=== PATIENT | female | born 1955 | race Two or more races ===

== ENCOUNTER 2021-10-30 09:20 | Inpatient (IN) | payer OTHER, MEDICAID ==
[~2021-10-30] VITALS: Ht 162.6 cm; Wt 45.2 kg
[2021-10-30] MEDS ORDERED: cefTRIAXone 1GM/50ML D5W 50 ML IV ONE (10:15)
[2021-10-30] MEDS ORDERED: SODIUM CHLORIDE 0.9% 1,000 ML IV ONE (10:30)
[2021-10-30 10:31] LABS: Basophils # (auto) 0.1 10 ^3/uL (0-0.2); Basophils % (auto) 0.6 % (0.0-2.0); Eosinophils # (auto) 0.2 10 ^3/uL (0-0.8); Hematocrit 28.2 % (36.0-46.0); Hemoglobin 8.9 g/dL (12.2-16.2); Lymphocytes # (auto) 1.1 10 ^3/uL (0.4-5.4); Lymphocytes % (auto) 6.4 % (10.0-50.0); Mean Corpuscular Hemoglobin 23.3 pg (28.0-32.0); Mean Corpuscular Hgb Conc. 31.6 g/dL (32.0-36.0); Mean Corpuscular Volume 73.8 fL (80.0-100.0); Monocytes # (auto) 0.7 10 ^3/uL (0-1.3); Monocytes % (auto) 4.2 % (0.0-12.0); Neutrophils # (auto) 14.8 10 ^3/uL (1.6-8.6); Neutrophils % (auto) 87.8 % (37.0-80.0); Nucleated Red Blood Cells % 0.1 %; Red Blood Cells 3.82 10^6/uL (4.0-5.20); Red Cell Distribution Width 24.1 % (11.8-14.3); White Blood Cell 16.9 10^3/uL (4.4-10.8)
[2021-10-30 10:46] LABS: Potassium 5.3 mmol/L (3.5-5.1)
[2021-10-30 10:55] LABS: Albumin 1.9 g/dL (3.4-5.0); BUN/Creatinine Ratio 27.8; Bilirubin, Total 1.2 mg/dL (0.2-1.0); Calcium 8.9 mg/dL (8.5-10.1); Total Protein 8.1 g/dL (6.4-8.2)
[2021-10-30 11:45] LABS: Urine Specific Gravity 1.25 (1.001-1.035)
[2021-10-30 11:46] LABS: Urine Blood Negative /uL (Negative)
[2021-10-30 14:10] LABS: Urine WBC >200 /hpf (0 - 5); Urine WBC Clumps Present /hpf (None Seen)
[2021-10-30 14:12] LABS: Urine Bacteria None Seen /hpf (None Seen)
[2021-10-30 14:13] LABS: Urine Budding Yeast MODERATE /hpf (None Seen)
[2021-10-30 18:47] LABS: Cholesterol 87 mg/dL (< 200)
[2021-10-30 18:50] LABS: HDL Cholesterol 31 mg/dL (40-59); LDL Cholesterol 47 mg/dL (< 100); Triglycerides 96 mg/dL (< 150)
[2021-10-30] MEDS ORDERED: ENOXAPARIN SOD 40 MG/0.4 ML SYRINGE SC ONE (19:30)
[2021-10-30] MEDS ORDERED: NTG 0.1MG/HR TOPICAL PATCH TD ONE (19:30)
[2021-10-31] MEDS ORDERED: LORazepam 2MG/ML-1ML VIAL IV ONE ×2 (00:15→14:35)
[2021-10-31 05:44] LABS: Basophils # (auto) 0.1 10 ^3/uL (0-0.2); Eosinophils # (auto) 0.2 10 ^3/uL (0-0.8); Eosinophils % (auto) 1.2 % (0.0-7.0); Hemoglobin 8.5 g/dL (12.2-16.2); Monocytes # (auto) 0.6 10 ^3/uL (0-1.3)
[2021-10-31 05:49] LABS: Basophils % (auto) 0.9 % (0.0-2.0); Hematocrit 26.8 % (36.0-46.0); Lymphocytes # (auto) 0.9 10 ^3/uL (0.4-5.4); Lymphocytes % (auto) 5.5 % (10.0-50.0); Mean Corpuscular Hemoglobin 23.7 pg (28.0-32.0); Mean Corpuscular Hgb Conc. 31.9 g/dL (32.0-36.0); Mean Corpuscular Volume 74.2 fL (80.0-100.0); Monocytes % (auto) 3.6 % (0.0-12.0); Neutrophils # (auto) 14.7 10 ^3/uL (1.6-8.6); Neutrophils % (auto) 88.8 % (37.0-80.0); Nucleated Red Blood Cells % 0.2 %; Red Blood Cells 3.61 10^6/uL (4.0-5.20); White Blood Cell 16.5 10^3/uL (4.4-10.8)
[2021-10-31 05:51] LABS: Red Cell Distribution Width 23.8 % (11.8-14.3)
[2021-10-31 06:04] LABS: Potassium 3.8 mmol/L (3.5-5.1)
[2021-10-31 06:12] LABS: Albumin 1.8 g/dL (3.4-5.0); BUN/Creatinine Ratio 36.9; Bilirubin, Total 0.8 mg/dL (0.2-1.0); Calcium 8.4 mg/dL (8.5-10.1); Total Protein 7.3 g/dL (6.4-8.2)
[2021-10-31] MEDS ORDERED: LORazepam 2MG/ML-1ML VIAL IV PRN (08:30)
[2021-10-31] MEDS: HALOPERIDOL LACTATE 5 MG/ML INJ VIAL IM PRN (08:40)
[2021-10-31 09:00] VITALS: BP 131/71
[2021-10-31] MEDS ORDERED: cefTRIAXone 1GM/50ML D5W 50 ML IV SCH (09:00)
[2021-10-31] MEDS ORDERED: FUROSEMIDE 20 MG/2 ML VIAL IV ONE (10:30)
[2021-10-31 10:31] VITALS: BP 144/80
[2021-10-31] MEDS ORDERED: CARVEDILOL 3.125 MG TAB GT ONE (12:15)
[2021-10-31] MEDS ORDERED: LISINOPRIL 5 MG TAB GT ONE (12:15)
[2021-10-31] MEDS ORDERED: Glucerna 1.2 Cal 1Liter BOTTLE GT SCH (12:15)
[2021-10-31 12:24] LABS: Free T4 (Free Thyroxine) 1.23 ng/dL (0.89-1.76)
[2021-10-31 12:25] LABS: Folate (Folic Acid) > 24.00 ng/mL (5.38-24)
[2021-10-31] MEDS ORDERED: HALOPERIDOL LACTATE 5 MG/ML INJ VIAL IM PRN (13:15)
[2021-10-31 13:17] VITALS: BP 144/80
[2021-10-31] MEDS: PANTOPRAZOLE 40 MG/10 ML VIAL INJ IV SCH ×2 (14:51→21:41)
[2021-10-31] MEDS: PIPERACILLIN-TAZOB 3.375GM 100 ML IV SCH ×2 (14:52→21:41)
[2021-10-31 17:00] VITALS: BP 115/58
[2021-10-31] MEDS: FUROSEMIDE 20 MG/2 ML VIAL IV SCH (18:34)
[2021-10-31] MEDS: CARVEDILOL 3.125 MG TAB GT SCH (22:00)
[2021-11-01] MEDS: HALOPERIDOL LACTATE 5 MG/ML INJ VIAL IM PRN (05:21)
[2021-11-01] MEDS: FUROSEMIDE 20 MG/2 ML VIAL IV SCH ×2 (05:37→18:00)
[2021-11-01] MEDS: PIPERACILLIN-TAZOB 3.375GM 100 ML IV SCH ×2 (05:38→17:34)
[2021-11-01 07:41] LABS: Eosinophils # (auto) 0.4 10 ^3/uL (0-0.8); Hemoglobin 7.8 g/dL (12.2-16.2); Lymphocytes # (auto) 0.4 10 ^3/uL (0.4-5.4); Monocytes # (auto) 0.5 10 ^3/uL (0-1.3); Neutrophils # (auto) 13.8 10 ^3/uL (1.6-8.6); White Blood Cell 15.3 10^3/uL (4.4-10.8)
[2021-11-01 07:43] LABS: Basophils # (auto) 0.2 10 ^3/uL (0-0.2); Basophils % (auto) 1.3 % (0.0-2.0); Eosinophils % (auto) 2.5 % (0.0-7.0); Hematocrit 25.4 % (36.0-46.0); Lymphocytes % (auto) 2.9 % (10.0-50.0); Mean Corpuscular Hemoglobin 22.9 pg (28.0-32.0); Mean Corpuscular Hgb Conc. 30.7 g/dL (32.0-36.0); Mean Corpuscular Volume 74.7 fL (80.0-100.0); Monocytes % (auto) 3.2 % (0.0-12.0); Neutrophils % (auto) 90.1 % (37.0-80.0); Nucleated Red Blood Cells % 0.1 %; Red Blood Cells 3.39 10^6/uL (4.0-5.20); Red Cell Distribution Width 24.3 % (11.8-14.3)
[2021-11-01 07:53] LABS: BUN/Creatinine Ratio 33.7; Calcium 8.1 mg/dL (8.5-10.1); Magnesium 2.1 mg/dL (1.6-2.6); Potassium 3.4 mmol/L (3.5-5.1)
[2021-11-01 08:00] VITALS: BP 102/77
[2021-11-01] MEDS ORDERED: DAPAGLIFLOZIN 5 MG TAB GT SCH (10:00)
[2021-11-01] MEDS ORDERED: LISINOPRIL 5 MG TAB GT SCH (10:00)
[2021-11-01 12:00] VITALS: BP 97/41
[2021-11-01] MEDS: CARVEDILOL 3.125 MG TAB GT SCH (13:07)
[2021-11-01] MEDS: PANTOPRAZOLE 40 MG/10 ML VIAL INJ IV SCH (13:08)
[2021-11-01] MEDS ORDERED: FLUCONAZOLE 200MG/100ML 100 ML IV ONE (14:45)
[2021-11-01] MEDS ORDERED: DILT60TA PO (15:22)
[2021-11-01] MEDS ORDERED: LACT10SO3 PO (15:22)
[2021-11-01] MEDS ORDERED: ATOR80TA PO (15:22)
[2021-11-01] MEDS ORDERED: QUET1TAB11 PO (15:22)
[2021-11-01 16:00] VITALS: BP 96/47
[2021-11-01] MEDS ORDERED: POTASSIUM EFFERVESENT TAB 25 MEQ GT ONE (17:00)
== END 2021-11-01 21:20 | disposition hospice, home (50) | DRG 871 ==
LOC: EDBD 09:20 → ER 09:20 → OVERFLOW 17:53 → CENTRAL 10-31 08:35
PROVIDERS: ADMIT Registered Nurse; ATTEND Internal Medicine
DX: A41.9 Sepsis, unspecified organism (principal); G93.41 Metabolic encephalopathy; J96.01 Acute respiratory failure with hypoxia; J69.0 Pneumonitis due to inhalation of food and vomit; I21.4 Non-ST elevation (NSTEMI) myocardial infarction; I50.23 Acute on chronic systolic (congestive) heart failure; G93.1 Anoxic brain damage, not elsewhere classified; N30.00 Acute cystitis without hematuria; I69.354 Hemiplegia and hemiparesis following cerebral infarction affecting left non-dominant side; I11.0 Hypertensive heart disease with heart failure; D63.8 Anemia in other chronic diseases classified elsewhere; E11.9 Type 2 diabetes mellitus without complications; E78.5 Hyperlipidemia, unspecified; E88.09 Other disorders of plasma-protein metabolism, not elsewhere classified; Z20.822 Contact with and (suspected) exposure to COVID-19; H53.462 Homonymous bilateral field defects, left side; K76.0 Fatty (change of) liver, not elsewhere classified; Z93.1 Gastrostomy status
CPT/HCPCS: 36415; 70450; 70551; 71045; 71250; 80048; 80053; 80061; 81001; 82607; 82746; 83036; 83605; 83735; 83880; 84439; 84443; 84484; 85025; 87040; 87077; 87086; 87186; 93005; 93306; 93886; 96365; 99291; C9113; G0378; J0696; J1450; J2543

== ENCOUNTER 2021-11-07 09:00 | Inpatient (IN) | payer OTHER, MEDICAID ==
[~2021-11-07] VITALS: Ht 157.5 cm; Wt 58.7 kg
[~2021-11-07 09:00] MED LIST: ATOR80TA PO; DILT60TA PO; LACT10SO3 PO; QUET1TAB11 PO
[2021-11-07] MEDS ORDERED: cefTRIAXone 1GM/50ML D5W 50 ML IV ONE (09:30)
[2021-11-07] MEDS ORDERED: SODIUM CHLORIDE 0.9% 1,000 ML IV ONE (09:30)
[2021-11-07] MEDS ORDERED: SODIUM CHLORIDE 0.9% 1,000 ML IVB ONE (09:30)
[2021-11-07] MEDS ORDERED: metroNIDAZOLE 500MG/100ML 100 ML IV ONE (09:30)
[2021-11-07 10:12] LABS: Eosinophils # (auto) 0 10 ^3/uL (0-0.8)
[2021-11-07 10:16] LABS: Basophils # (auto) 0.1 10 ^3/uL (0-0.2); Basophils % (auto) 0.6 % (0.0-2.0); Lymphocytes # (auto) 0.9 10 ^3/uL (0.4-5.4); Lymphocytes % (auto) 6.3 % (10.0-50.0); Mean Corpuscular Hgb Conc. 29.1 g/dL (32.0-36.0); Monocytes % (auto) 6.7 % (0.0-12.0); Neutrophils # (auto) 12.2 10 ^3/uL (1.6-8.6); Neutrophils % (auto) 86.4 % (37.0-80.0); Nucleated Red Blood Cells % 0.6 %; Red Blood Cells 3.32 10^6/uL (4.0-5.20); White Blood Cell 14.2 10^3/uL (4.4-10.8)
[2021-11-07 10:25] LABS: Urine Bacteria FEW /hpf (None Seen); Urine Blood Negative /uL (Negative); Urine Budding Yeast LOADED /hpf (None Seen); Urine Specific Gravity 1.015 (1.001-1.035); Urine WBC 16 /hpf (0 - 5)
[2021-11-07 10:28] LABS: Lactic Acid w/Reflex 3.8 mmol/L (0.4-2.0)
[2021-11-07 10:34] LABS: Hematocrit 26.1 % (36.0-46.0); Mean Corpuscular Hemoglobin 22.9 pg (28.0-32.0); Mean Corpuscular Volume 78.6 fL (80.0-100.0); Red Cell Distribution Width 24.5 % (11.8-14.3)
[2021-11-07 10:35] LABS: Hemoglobin 7.6 g/dL (12.2-16.2)
[2021-11-07 11:08] LABS: Alanine Aminotransferase 27 U/L (13-56); Albumin 1.7 g/dL (3.4-5.0); Anion Gap 10 (5-15); Aspartate Aminotransferase 34 U/L (15-37); Blood Alcohol < 3.0 mg/dL (0-5); Calcium 8.4 mg/dL (8.5-10.1); Carbon Dioxide 32 mmol/L (21-32); Chloride 106 mmol/L (98-107); Potassium 4.3 mmol/L (3.5-5.1); Sodium 148 mmol/L (136-145)
[2021-11-07 11:11] LABS: INR 1.24 (0.9-1.15); Partial Thromboplastin Time 23.7 sec (23.6-33.0)
[2021-11-07 11:17] LABS: Alkaline Phosphatase 113 U/L (45-117); BUN/Creatinine Ratio 39.4; Bilirubin, Total 0.4 mg/dL (0.2-1.0); GFR African American 25 mL/min; GFR Non-African American 21 mL/min; Total Protein 7.5 g/dL (6.4-8.2)
[2021-11-07 11:34] LABS: Blood Urea Nitrogen 97 mg/dL (7-18); Glucose 755 mg/dL (74-106)
[2021-11-07] MEDS ORDERED: DEXTROSE (50%) 50ML SYRG IV PRN (12:30)
[2021-11-07] MEDS ORDERED: INSULIN LANTUS (GLARGINE) 1 /0.01ml (100units/ml) SC ONE (12:30)
[2021-11-07] MEDS ORDERED: ENOXAPARIN SOD 60 MG/0.6 ML SYRINGE SC ONE (12:45)
[2021-11-07] MEDS ORDERED: LACTATED RINGER'S 1,000 ML IV ONE (13:00)
[2021-11-07] MEDS ORDERED: NITROGLYCERIN 0.4 MG SL TAB SL PRN (13:00)
[2021-11-07] MEDS ORDERED: MORPHINE SULFATE INJ 2 MG/ml SYRG IV PRN (13:00)
[2021-11-07] MEDS: InsuLIN R (HUMAN) 100 UNITS in SODIUM CHL 0.9% 99 ML IV SCH ×2 (13:53→15:42)
[2021-11-07] MEDS: ACCU-CHEK COMFORT CURVE STRIP VI SCH ×7 (14:00→23:35)
[2021-11-07 14:22] LABS: Albumin 1.7 g/dL (3.4-5.0); Calcium 7.9 mg/dL (8.5-10.1); Potassium 3.8 mmol/L (3.5-5.1)
[2021-11-07 14:30] LABS: BUN/Creatinine Ratio 41.7; Bilirubin, Total 0.3 mg/dL (0.2-1.0)
[2021-11-07] MEDS ORDERED: SOD CHL 0.45% 1,000 ML IV SCH (14:45)
[2021-11-07] MEDS ORDERED: SODIUM CHLORIDE 0.9% 2,000 ML IV ONE (15:15)
[2021-11-07] MEDS ORDERED: ONDANSETRON HCL 4 MG/2 ML VIAL IV PRN (15:45)
[2021-11-07] MEDS ORDERED: ACETAMINOPHEN 325 MG TAB PO PRN (15:45)
[2021-11-07] MEDS: NOREPINEPHRINE 8 MG/250ML KIT 250 ML IV SCH (15:45)
[2021-11-07] MEDS ORDERED: LACTULOSE 20Gm/30ML SOLN PO PRN (15:45)
[2021-11-07] MEDS ORDERED: VANCOMYCIN PER PHARMACY 1,000 MG IV SCH (15:45)
[2021-11-07] MEDS ORDERED: DOCUSATE SOD 100 MG CAP PO PRN (15:45)
[2021-11-07] MEDS ORDERED: hydrALAZINE HCL 20 MG/ML VL IV PRN (15:45)
[2021-11-07] MEDS ORDERED: PANTOPRAZOLE 40 MG/10 ML VIAL INJ IV ONE (15:45)
[2021-11-07] MEDS ORDERED: LORazepam 0.5 MG TAB PO PRN (15:45)
[2021-11-07] MEDS ORDERED: SODIUM CHLORIDE 0.9% 1,000 ML IV SCH (16:00)
[2021-11-07] MEDS ORDERED: HYDROcodone-ACET 5/325MG TAB PO PRN (16:15)
[2021-11-07 16:37] LABS: Magnesium 1.1 mg/dL (1.6-2.6); Phosphorus 1.6 mg/dL (2.5-4.90)
[2021-11-07] MEDS ORDERED: VANCOMYCIN 1GM/250ML 250 ML IV ONE (17:00)
[2021-11-07] MEDS: MORPHINE SULFATE INJ 2 MG/ml SYRG IV PRN (17:57)
[2021-11-07] MEDS ORDERED: BUMETANIDE 2.5mg/10ml (0.25 mg/ml) INJ IV SCH (18:00)
[2021-11-07 19:02] LABS: INR 1.76 (0.9-1.15); Partial Thromboplastin Time 47.2 sec (23.6-33.0)
[2021-11-07] MEDS ORDERED: POTASSIUM PHOSPHATE 44 MEQ in D5W 5% 250 ML IV ONE (20:00)
[2021-11-07 20:51] LABS: BUN/Creatinine Ratio 39.1
[2021-11-07 20:53] LABS: Potassium 2.9 mmol/L (3.5-5.1)
[2021-11-07] MEDS: SOD CHL 0.45% 1,000 ML IV SCH (21:09)
[2021-11-07] MEDS: CARVEDILOL 3.125 MG TAB PO SCH (22:00)
[2021-11-07] MEDS: ATORVASTATIN 20 MG TAB PO SCH (22:00)
[2021-11-07] MEDS ORDERED: ATORVASTATIN 20 MG TAB PO SCH (22:00)
[2021-11-07 23:43] LABS: BUN/Creatinine Ratio 40.7; Calcium 7.6 mg/dL (8.5-10.1); Potassium 3.2 mmol/L (3.5-5.1)
[2021-11-08] MEDS: PIPERACILLIN-TAZOB 2.25GM 50 ML IV SCH ×3 (00:04→14:00)
[2021-11-08] MEDS: ACCU-CHEK COMFORT CURVE STRIP VI SCH ×16 (01:06→22:30)
[2021-11-08] MEDS: SOD CHL 0.45% 1,000 ML IV SCH ×2 (05:13→12:23)
[2021-11-08 08:29] LABS: Basophils # (auto) 0.1 10 ^3/uL (0-0.2); Basophils % (auto) 0.5 % (0.0-2.0); Eosinophils # (auto) 0.3 10 ^3/uL (0-0.8); Eosinophils % (auto) 1.9 % (0.0-7.0); White Blood Cell 15.3 10^3/uL (4.4-10.8)
[2021-11-08 08:30] LABS: Hematocrit 26.1 % (36.0-46.0); Lymphocytes # (auto) 1.3 10 ^3/uL (0.4-5.4); Lymphocytes % (auto) 8.4 % (10.0-50.0); Mean Corpuscular Hgb Conc. 29.8 g/dL (32.0-36.0); Monocytes # (auto) 0.5 10 ^3/uL (0-1.3); Monocytes % (auto) 3.1 % (0.0-12.0); Neutrophils # (auto) 13.2 10 ^3/uL (1.6-8.6); Neutrophils % (auto) 86.1 % (37.0-80.0); Red Blood Cells 3.36 10^6/uL (4.0-5.20)
[2021-11-08 08:39] LABS: Albumin 1.7 g/dL (3.4-5.0); Calcium 7.6 mg/dL (8.5-10.1); Magnesium 2.4 mg/dL (1.6-2.6); Potassium 3.6 mmol/L (3.5-5.1); Uric Acid 8.9 mg/dL (2.6-6.0)
[2021-11-08 08:48] LABS: BUN/Creatinine Ratio 41.9; Bilirubin, Total 0.4 mg/dL (0.2-1.0); CRP High Sensitivity 1.5 mg/dL (< 0.3); Total Protein 6.9 g/dL (6.4-8.2)
[2021-11-08 08:49] LABS: Thyroid Stimulating Hormone 2.47 uIU/mL (0.358-3.74)
[2021-11-08 09:00] LABS: INR 1.19 (0.9-1.15); Partial Thromboplastin Time 29.6 sec (23.6-33.0)
[2021-11-08 09:11] LABS: Hemoglobin 7.8 g/dL (12.2-16.2); Mean Corpuscular Hemoglobin 23.1 pg (28.0-32.0); Mean Corpuscular Volume 77.7 fL (80.0-100.0)
[2021-11-08 09:12] LABS: Red Cell Distribution Width 23.5 % (11.8-14.3)
[2021-11-08] MEDS: CARVEDILOL 3.125 MG TAB PO SCH ×2 (09:49→22:00)
[2021-11-08] MEDS: ASPirin 81 mg TAB PO SCH (09:51)
[2021-11-08] MEDS ORDERED: BENAZEPRIL HCL 10 MG TAB PO SCH (10:00)
[2021-11-08] MEDS: PANTOPRAZOLE 40 MG/10 ML VIAL INJ IV SCH (10:21)
[2021-11-08] MEDS: INSULIN LANTUS (GLARGINE) 1 /0.01ml (100units/ml) SC SCH (10:21)
[2021-11-08] MEDS: InsuLIN R (HUMAN) 100 UNITS in SODIUM CHL 0.9% 99 ML IV SCH (12:30)
[2021-11-08 14:18] LABS: BUN/Creatinine Ratio 43.4; Calcium 7.8 mg/dL (8.5-10.1)
[2021-11-08 14:23] LABS: BUN/Creatinine Ratio 41.2; Calcium 7.7 mg/dL (8.5-10.1)
[2021-11-08] MEDS: NOREPINEPHRINE 8 MG/250ML KIT 250 ML IV SCH (15:45)
[2021-11-08] MEDS ORDERED: VANCOMYCIN 1GM/250ML 250 ML IV ONE (18:00)
[2021-11-08] MEDS ORDERED: PIPERACILLIN-TAZOB 2.25GM 50 ML IV SCH (20:00)
[2021-11-08 20:25] LABS: BUN/Creatinine Ratio 41.8; Calcium 7.4 mg/dL (8.5-10.1); Potassium 3.8 mmol/L (3.5-5.1)
[2021-11-08] MEDS: ATORVASTATIN 20 MG TAB PO SCH (22:00)
[2021-11-09] MEDS: SOD CHL 0.45% 1,000 ML IV SCH (00:42)
[2021-11-09] MEDS: ACCU-CHEK COMFORT CURVE STRIP VI SCH ×9 (00:54→18:34)
[2021-11-09 06:13] LABS: BUN/Creatinine Ratio 34.3; Calcium 7.8 mg/dL (8.5-10.1); Potassium 3.6 mmol/L (3.5-5.1)
[2021-11-09] MEDS: D5W/SOD CHL 0.45% 1,000 ML IV SCH (07:53)
[2021-11-09] MEDS: MORPHINE SULFATE INJ 2 MG/ml SYRG IV PRN (08:09)
[2021-11-09] MEDS: PANTOPRAZOLE 40 MG/10 ML VIAL INJ IV SCH (09:21)
[2021-11-09] MEDS: cefTRIAXone 1GM/50ML D5W 50 ML IV SCH (09:23)
[2021-11-09] MEDS: CARVEDILOL 3.125 MG TAB PO SCH ×2 (09:25→22:00)
[2021-11-09] MEDS: ASPirin 81 mg TAB PO SCH (09:25)
[2021-11-09] MEDS: INSULIN LANTUS (GLARGINE) 1 /0.01ml (100units/ml) SC SCH (10:00)
[2021-11-09] MEDS ORDERED: FLUCONAZOLE 200MG/100ML 100 ML IV ONE (16:00)
[2021-11-09 17:00] VITALS: BP 94/38
[2021-11-09 22:00] VITALS: BP 98/47
[2021-11-09] MEDS: ATORVASTATIN 20 MG TAB PO SCH (22:00)
[2021-11-10] MEDS: LORazepam 2MG/ML-1ML VIAL IV PRN ×2 (01:07→17:27)
[2021-11-10 05:00] VITALS: BP 104/66
[2021-11-10] MEDS: ACCU-CHEK COMFORT CURVE STRIP VI SCH ×5 (05:53→22:05)
[2021-11-10 06:58] LABS: BUN/Creatinine Ratio 30.2; Calcium 7.7 mg/dL (8.5-10.1); Potassium 3.8 mmol/L (3.5-5.1)
[2021-11-10 07:58] LABS: Lymphocytes # (auto) 0.9 10 ^3/uL (0.4-5.4); Mean Corpuscular Hemoglobin 23.6 pg (28.0-32.0); Monocytes # (auto) 0.7 10 ^3/uL (0-1.3); White Blood Cell 10.9 10^3/uL (4.4-10.8)
[2021-11-10 08:00] VITALS: BP 107/65
[2021-11-10 08:00] LABS: Basophils # (auto) 0.1 10 ^3/uL (0-0.2); Basophils % (auto) 0.5 % (0.0-2.0); Eosinophils # (auto) 0.3 10 ^3/uL (0-0.8); Eosinophils % (auto) 2.4 % (0.0-7.0); Hematocrit 22.3 % (36.0-46.0); Lymphocytes % (auto) 8.2 % (10.0-50.0); Mean Corpuscular Hgb Conc. 30.9 g/dL (32.0-36.0); Mean Corpuscular Volume 76.2 fL (80.0-100.0); Monocytes % (auto) 6.8 % (0.0-12.0); Neutrophils # (auto) 8.9 10 ^3/uL (1.6-8.6); Neutrophils % (auto) 82.1 % (37.0-80.0); Nucleated Red Blood Cells % 0.4 %; Red Blood Cells 2.93 10^6/uL (4.0-5.20); Red Cell Distribution Width 23.4 % (11.8-14.3)
[2021-11-10 08:15] LABS: Hemoglobin 6.9 g/dL (12.2-16.2)
[2021-11-10 09:00] VITALS: BP 107/65
[2021-11-10] MEDS: CARVEDILOL 3.125 MG TAB PO SCH ×2 (10:00→22:00)
[2021-11-10] MEDS: ASPirin 81 mg TAB PO SCH (10:00)
[2021-11-10] MEDS ORDERED: DOCUSATE ORAL LIQUID 100 MG/10 ML UD PO PRN (10:15)
[2021-11-10 10:21] LABS: Hemoglobin 7.8 g/dL (12.2-16.2)
[2021-11-10 10:26] LABS: Hematocrit 26.2 % (36.0-46.0)
[2021-11-10] MEDS ORDERED: ACETAMINOPHEN 650 mg PER 20.3 mL UD PO PRN (10:30)
[2021-11-10] MEDS: cefTRIAXone 1GM/50ML D5W 50 ML IV SCH (11:20)
[2021-11-10] MEDS: FLUCONAZOLE 200MG/100ML 100 ML IV SCH (11:20)
[2021-11-10] MEDS: PANTOPRAZOLE 40 MG/10 ML VIAL INJ IV SCH (11:21)
[2021-11-10] MEDS: INSULIN LANTUS (GLARGINE) 1 /0.01ml (100units/ml) SC SCH (11:25)
[2021-11-10 14:00] VITALS: BP 110/61
[2021-11-10] MEDS: D5W/SOD CHL 0.45% 1,000 ML IV SCH ×2 (14:33→22:04)
[2021-11-10 17:00] VITALS: BP 95/57
[2021-11-10] MEDS: ATORVASTATIN 20 MG TAB PO SCH (22:00)
[2021-11-10 23:51] VITALS: BP 134/76
[2021-11-11] MEDS: LORazepam 2MG/ML-1ML VIAL IV PRN (02:28)
[2021-11-11 05:13] VITALS: BP 118/63
[2021-11-11] MEDS: ACCU-CHEK COMFORT CURVE STRIP VI SCH ×3 (06:13→17:04)
[2021-11-11] MEDS: D5W/SOD CHL 0.45% 1,000 ML IV SCH ×2 (06:13→09:30)
[2021-11-11 08:00] VITALS: BP 107/65
[2021-11-11] MEDS: CARVEDILOL 3.125 MG TAB PO SCH ×2 (08:00→10:00)
[2021-11-11] MEDS: cefTRIAXone 1GM/50ML D5W 50 ML IV SCH (08:50)
[2021-11-11 09:00] VITALS: BP 127/59
[2021-11-11 09:05] LABS: Calcium 6.9 mg/dL (8.5-10.1)
[2021-11-11 09:14] LABS: BUN/Creatinine Ratio 17.8
[2021-11-11 09:17] LABS: Potassium 2.9 mmol/L (3.5-5.1)
[2021-11-11] MEDS ORDERED: INSULIN LISPRO (HUMAN) 100 UNITS/ML ML SC ONE (09:45)
[2021-11-11] MEDS ORDERED: POTASSIUM EFFERVESENT TAB 25 MEQ GT ONE ×2 (09:45→12:20)
[2021-11-11] MEDS: FLUCONAZOLE 200MG/100ML 100 ML IV SCH (10:00)
[2021-11-11] MEDS: ASPirin 81 mg TAB PO SCH (10:00)
[2021-11-11] MEDS: INSULIN LANTUS (GLARGINE) 1 /0.01ml (100units/ml) SC SCH (10:00)
[2021-11-11] MEDS: PANTOPRAZOLE 40 MG/10 ML VIAL INJ IV SCH (10:53)
[2021-11-11 13:00] VITALS: BP 136/75
[2021-11-11 15:18] LABS: Calcium 8.4 mg/dL (8.5-10.1); Potassium 3.5 mmol/L (3.5-5.1)
[2021-11-11 16:19] VITALS: BP 117/50
[2021-11-11 17:00] VITALS: BP 117/50
== END 2021-11-11 18:15 | disposition hospice, home (50) | DRG 871 ==
LOC: ER 09:00 → EDBD 09:00 → TELE 13:00 → TELE-EAST 11-09 15:30
PROVIDERS: ADMIT Hospitalist; ATTEND Internal Medicine
DX: A41.9 Sepsis, unspecified organism (principal); E11.10 Type 2 diabetes mellitus with ketoacidosis without coma; E11.00 Type 2 diabetes mellitus with hyperosmolarity without nonketotic hyperglycemic-hyperosmolar coma (NKHHC); G93.41 Metabolic encephalopathy; I21.A1 Myocardial infarction type 2; I50.43 Acute on chronic combined systolic (congestive) and diastolic (congestive) heart failure; N17.0 Acute kidney failure with tubular necrosis; E87.0 Hyperosmolality and hypernatremia; N39.0 Urinary tract infection, site not specified; E87.1 Hypo-osmolality and hyponatremia; I69.354 Hemiplegia and hemiparesis following cerebral infarction affecting left non-dominant side; E44.0 Moderate protein-calorie malnutrition; Z20.822 Contact with and (suspected) exposure to COVID-19; D64.9 Anemia, unspecified; H53.462 Homonymous bilateral field defects, left side; I27.21 Secondary pulmonary arterial hypertension; K21.9 Gastro-esophageal reflux disease without esophagitis; K29.70 Gastritis, unspecified, without bleeding; I11.0 Hypertensive heart disease with heart failure; E11.40 Type 2 diabetes mellitus with diabetic neuropathy, unspecified; K59.04 Chronic idiopathic constipation; L89.90 Pressure ulcer of unspecified site, unspecified stage; Z93.1 Gastrostomy status; Z51.5 Encounter for palliative care; Z74.01 Bed confinement status; Z68.20 Body mass index [BMI] 20.0-20.9, adult; Z79.4 Long term (current) use of insulin
CPT/HCPCS: 36415; 36600; 70450; 71045; 71250; 74176; 80048; 80053; 80061; 80202; 80320; 81001; 82010; 82728; 82805; 82962; 83605; 83615; 83690; 83735; 83880; 83930; 83935; 83970; 84100; 84295; 84443; 84484; 84550; 85014; 85018; 85025; 85379; 85610; 85652; 85730; 86141; 86850; 86900; 86901; 87040; 87086; 87088; 87186; 92610; 93005; 93886; 93970; 96365; 96368; 96372; 99291; C9113; G0378; J0696; J1450; J1815; J2405; J2543; J3490; J7060

== ENCOUNTER 2021-11-17 05:55 | Inpatient (IN) | payer OTHER, MEDICAID ==
[~2021-11-17] VITALS: Ht 167.6 cm; Wt 51.7 kg
[2021-11-17] MEDS ORDERED: CEFEPIME 1GM/ 50ML 50 ML IV ONE ×2 (08:30→13:30)
[2021-11-17] MEDS ORDERED: VANCOMYCIN 1GM/250ML 250 ML IV ONE (08:30)
[2021-11-17] MEDS ORDERED: SODIUM CHLORIDE 0.9% 2,000 ML IV ONE (08:45)
[2021-11-17 09:06] LABS: Eosinophils # (auto) 0.1 10 ^3/uL (0-0.8); Red Blood Cells 2.58 10^6/uL (4.0-5.20); White Blood Cell 17.6 10^3/uL (4.4-10.8)
[2021-11-17 09:07] LABS: Basophils # (auto) 0.3 10 ^3/uL (0-0.2); Basophils % (auto) 1.9 % (0.0-2.0); Eosinophils % (auto) 0.5 % (0.0-7.0); Hematocrit 19.5 % (36.0-46.0); Lymphocytes # (auto) 0.7 10 ^3/uL (0.4-5.4); Lymphocytes % (auto) 3.9 % (10.0-50.0); Mean Corpuscular Hemoglobin 22.5 pg (28.0-32.0); Mean Corpuscular Hgb Conc. 29.7 g/dL (32.0-36.0); Mean Corpuscular Volume 75.7 fL (80.0-100.0); Monocytes % (auto) 5.8 % (0.0-12.0); Neutrophils # (auto) 15.5 10 ^3/uL (1.6-8.6); Neutrophils % (auto) 87.9 % (37.0-80.0); Nucleated Red Blood Cells % 0.3 %
[2021-11-17 09:36] LABS: Red Cell Distribution Width 23.9 % (11.8-14.3)
[2021-11-17 09:39] LABS: Hemoglobin 5.8 g/dL (12.2-16.2)
[2021-11-17 09:41] LABS: Magnesium 1.9 mg/dL (1.6-2.6); Potassium 5.2 mmol/L (3.5-5.1)
[2021-11-17 09:44] LABS: Lactic Acid w/Reflex 8.5 mmol/L (0.4-2.0)
[2021-11-17 09:46] LABS: BUN/Creatinine Ratio 32.6; Bilirubin, Total 0.5 mg/dL (0.2-1.0); Calcium 7.3 mg/dL (8.5-10.1)
[2021-11-17] MEDS ORDERED: PANTOPRAZOLE 40mg/50ML NS AE 50 ML IV ONE (10:00)
[2021-11-17] MEDS ORDERED: PANTOPRAZOLE 40 MG/10 ML VIAL INJ IV ONE (10:00)
[2021-11-17] MEDS ORDERED: ONDANSETRON HCL 4 MG/2 ML VIAL IV ONE (10:00)
[2021-11-17] MEDS ORDERED: IOHEXOL 350 MG/ML 100ML IJ ONE (10:23)
[2021-11-17 11:10] LABS: INR 1.28 (0.9-1.15); Partial Thromboplastin Time 23.4 sec (23.6-33.0)
[2021-11-17 15:40] VITALS: BP 117/56
[2021-11-17 15:45] VITALS: BP 128/56
[2021-11-17 16:00] VITALS: BP 121/54
[2021-11-17 17:30] VITALS: BP 148/57
[2021-11-17 18:10] VITALS: BP 147/54
[2021-11-17] MEDS: PANTOPRAZOLE 40 MG/10 ML VIAL INJ IV SCH (21:10)
[2021-11-17] MEDS ORDERED: ACETAMINOPHEN 325 MG TAB PO PRN (23:15)
[2021-11-17] MEDS ORDERED: DOCUSATE SOD 100 MG CAP PO PRN (23:15)
[2021-11-17] MEDS ORDERED: ONDANSETRON HCL 4 MG/2 ML VIAL IV PRN (23:15)
[2021-11-17] MEDS ORDERED: DEXTROSE (50%) 50ML SYRG IV PRN (23:15)
[2021-11-17] MEDS ORDERED: HYDROcodone-ACET 5/325MG TAB PO PRN (23:15)
[2021-11-17] MEDS ORDERED: VANCOMYCIN PER PHARMACY 0 MG IV SCH (23:15)
[2021-11-17] MEDS ORDERED: cefTRIAXone 1GM/50ML D5W 50 ML IV SCH (23:28)
[2021-11-17] MEDS: AZITHROMYCIN 500MG/ 250ML 250 ML IV SCH (23:47)
[2021-11-17] MEDS: InsuLIN REG 1unit/0.01ml Soln (100units/ml) SC SCH (23:48)
[2021-11-18] MEDS ORDERED: NITROGLYCERIN 0.4 MG SL TAB SL PRN
[2021-11-18] MEDS ORDERED: MORPHINE SULFATE INJ 2 MG/ml SYRG IV PRN
[2021-11-18] MEDS ORDERED: DEXTROSE (50%) 50ML SYRG IV PRN
[2021-11-18] MEDS: ACCU-CHEK COMFORT CURVE STRIP VI SCH ×6 (00:02→20:00)
[2021-11-18] MEDS: InsuLIN REG 1unit/0.01ml Soln (100units/ml) SC SCH ×5 (04:06→20:00)
[2021-11-18] MEDS ORDERED: LACTULOSE 10g/15ml SOLN 473ML PR SCH (06:00)
[2021-11-18] MEDS ORDERED: ACCU-CHEK COMFORT CURVE STRIP VI SCH (07:00)
[2021-11-18] MEDS ORDERED: InsuLIN REG 1unit/0.01ml Soln (100units/ml) SC SCH (07:00)
[2021-11-18] MEDS ORDERED: LACTULOSE 20Gm/30ML SOLN PO PRN (07:15)
[2021-11-18 07:36] LABS: Basophils # (auto) 0.2 10 ^3/uL (0-0.2); Basophils % (auto) 0.6 % (0.0-2.0); Eosinophils # (auto) 0 10 ^3/uL (0-0.8); Nucleated Red Blood Cells % 0.1 %
[2021-11-18 07:39] LABS: Eosinophils % (auto) 0.1 % (0.0-7.0); Hematocrit 28.2 % (36.0-46.0); Hemoglobin 9.5 g/dL (12.2-16.2); Lymphocytes # (auto) 0.7 10 ^3/uL (0.4-5.4); Lymphocytes % (auto) 2.6 % (10.0-50.0); Mean Corpuscular Hemoglobin 27.5 pg (28.0-32.0); Mean Corpuscular Hgb Conc. 33.8 g/dL (32.0-36.0); Mean Corpuscular Volume 81.4 fL (80.0-100.0); Monocytes # (auto) 1.6 10 ^3/uL (0-1.3); Neutrophils # (auto) 24.4 10 ^3/uL (1.6-8.6); Neutrophils % (auto) 90.7 % (37.0-80.0); Red Blood Cells 3.46 10^6/uL (4.0-5.20); Red Cell Distribution Width 21.2 % (11.8-14.3); White Blood Cell 26.9 10^3/uL (4.4-10.8)
[2021-11-18 07:53] LABS: Albumin 1.3 g/dL (3.4-5.0); Calcium 7.7 mg/dL (8.5-10.1); Potassium 3.4 mmol/L (3.5-5.1)
[2021-11-18 07:59] LABS: BUN/Creatinine Ratio 55.7; Bilirubin, Total 0.4 mg/dL (0.2-1.0); Total Protein 5.7 g/dL (6.4-8.2)
[2021-11-18] MEDS ORDERED: FAMOTIDINE (10MG/ML) 2ML VL IV SCH (10:00)
[2021-11-18] MEDS ORDERED: ASPirin 81 mg TAB PO SCH (10:00)
[2021-11-18] MEDS: MULTIPLE VITAMIN TAB PO SCH (10:00)
[2021-11-18] MEDS: PANTOPRAZOLE 40 MG/10 ML VIAL INJ IV SCH ×2 (10:29→22:08)
[2021-11-18] MEDS: VANCOMYCIN 1GM/250ML 250 ML IV SCH (10:29)
[2021-11-18 12:11] LABS: Urine Bacteria NONE SEEN /hpf (None Seen); Urine Blood 1+ /uL (Negative); Urine Hyaline Cast FEW /lpf (0 - 2); Urine Specific Gravity 1.039 (1.001-1.035); Urine WBC 6 /hpf (0 - 5)
[2021-11-18] MEDS ORDERED: SODIUM CHLORIDE 0.9% 1,000 ML IV SCH (18:30)
[2021-11-18] MEDS: D5W/SOD CHLO 0.9% 1,000 ML IV SCH ×2 (18:30→22:07)
[2021-11-18] MEDS ORDERED: HALOPERIDOL LACTATE 5 MG/ML INJ VIAL IM ONE (18:30)
[2021-11-18] MEDS: ATORVASTATIN 20 MG TAB PO SCH (21:52)
[2021-11-18] MEDS: AZITHROMYCIN 500MG/ 250ML 250 ML IV SCH (22:02)
[2021-11-18] MEDS: PIPERACILLIN-TAZOB 3.375GM 100 ML IV SCH (22:08)
[2021-11-19] MEDS: PIPERACILLIN-TAZOB 3.375GM 100 ML IV SCH ×4 (02:42→22:09)
[2021-11-19] MEDS: InsuLIN REG 1unit/0.01ml Soln (100units/ml) SC SCH ×7 (03:59→23:55)
[2021-11-19] MEDS: ACCU-CHEK COMFORT CURVE STRIP VI SCH ×7 (03:59→23:55)
[2021-11-19 09:13] LABS: Basophils # (auto) 0.1 10 ^3/uL (0-0.2); Basophils % (auto) 0.7 % (0.0-2.0); Eosinophils # (auto) 0.1 10 ^3/uL (0-0.8); Eosinophils % (auto) 0.8 % (0.0-7.0); Hemoglobin 8.1 g/dL (12.2-16.2); Monocytes # (auto) 1.2 10 ^3/uL (0-1.3); Nucleated Red Blood Cells % 0.1 %
[2021-11-19 09:14] LABS: Hematocrit 24.4 % (36.0-46.0); Lymphocytes # (auto) 0.7 10 ^3/uL (0.4-5.4); Lymphocytes % (auto) 4.3 % (10.0-50.0); Mean Corpuscular Hemoglobin 27.1 pg (28.0-32.0); Mean Corpuscular Hgb Conc. 33.2 g/dL (32.0-36.0); Mean Corpuscular Volume 81.7 fL (80.0-100.0); Monocytes % (auto) 7.2 % (0.0-12.0); Neutrophils # (auto) 14.9 10 ^3/uL (1.6-8.6); Red Blood Cells 2.99 10^6/uL (4.0-5.20); Red Cell Distribution Width 21.8 % (11.8-14.3); White Blood Cell 17.1 10^3/uL (4.4-10.8)
[2021-11-19 09:31] LABS: BUN/Creatinine Ratio 37.5; Calcium 7.4 mg/dL (8.5-10.1); Potassium 3.1 mmol/L (3.5-5.1)
[2021-11-19] MEDS: MULTIPLE VITAMIN TAB PO SCH (10:00)
[2021-11-19] MEDS: VANCOMYCIN 1GM/250ML 250 ML IV SCH (10:16)
[2021-11-19] MEDS: POTASSIUM CHL 20MEQ/100ML 100 ML IV SCH ×3 (10:19→14:11)
[2021-11-19] MEDS: PANTOPRAZOLE 40 MG/10 ML VIAL INJ IV SCH ×2 (10:21→22:09)
[2021-11-19 17:00] VITALS: BP 106/55
[2021-11-19 17:17] LABS: Basophils # (auto) 0.1 10 ^3/uL (0-0.2); Basophils % (auto) 0.7 % (0.0-2.0); Eosinophils # (auto) 0.2 10 ^3/uL (0-0.8); Monocytes # (auto) 1.3 10 ^3/uL (0-1.3); Neutrophils # (auto) 16.9 10 ^3/uL (1.6-8.6)
[2021-11-19 17:18] LABS: BUN/Creatinine Ratio 30.8; Calcium 7.5 mg/dL (8.5-10.1); Potassium 4.3 mmol/L (3.5-5.1)
[2021-11-19 17:19] LABS: Hematocrit 23.4 % (36.0-46.0); Hemoglobin 7.7 g/dL (12.2-16.2); Lymphocytes # (auto) 0.8 10 ^3/uL (0.4-5.4); Mean Corpuscular Volume 81.8 fL (80.0-100.0); Monocytes % (auto) 6.8 % (0.0-12.0); Neutrophils % (auto) 87.5 % (37.0-80.0); Red Blood Cells 2.85 10^6/uL (4.0-5.20); White Blood Cell 19.2 10^3/uL (4.4-10.8)
[2021-11-19] MEDS: D5W/SOD CHLO 0.9% 1,000 ML IV SCH (21:10)
[2021-11-19 22:00] VITALS: BP 125/60
[2021-11-19] MEDS: ATORVASTATIN 20 MG TAB PO SCH (22:00)
[2021-11-19] MEDS: AZITHROMYCIN 500MG/ 250ML 250 ML IV SCH (22:09)
[2021-11-20] MEDS: InsuLIN REG 1unit/0.01ml Soln (100units/ml) SC SCH ×6 (04:00→23:38)
[2021-11-20] MEDS: ACCU-CHEK COMFORT CURVE STRIP VI SCH ×6 (04:10→23:37)
[2021-11-20] MEDS: PIPERACILLIN-TAZOB 3.375GM 100 ML IV SCH ×4 (04:12→21:19)
[2021-11-20 05:00] VITALS: BP 140/62
[2021-11-20 07:17] LABS: Eosinophils # (auto) 0.2 10 ^3/uL (0-0.8); Hemoglobin 8.1 g/dL (12.2-16.2); Monocytes # (auto) 0.9 10 ^3/uL (0-1.3); Monocytes % (auto) 6.2 % (0.0-12.0); Neutrophils # (auto) 12.8 10 ^3/uL (1.6-8.6)
[2021-11-20 07:18] LABS: Basophils # (auto) 0.1 10 ^3/uL (0-0.2); Eosinophils % (auto) 1.1 % (0.0-7.0); Hematocrit 25.2 % (36.0-46.0); Lymphocytes # (auto) 0.9 10 ^3/uL (0.4-5.4); Lymphocytes % (auto) 5.9 % (10.0-50.0); Mean Corpuscular Hemoglobin 26.7 pg (28.0-32.0); Mean Corpuscular Hgb Conc. 32.1 g/dL (32.0-36.0); Mean Corpuscular Volume 83.1 fL (80.0-100.0); Neutrophils % (auto) 85.8 % (37.0-80.0); Nucleated Red Blood Cells % 0.1 %; Red Blood Cells 3.04 10^6/uL (4.0-5.20); Red Cell Distribution Width 21.9 % (11.8-14.3)
[2021-11-20 07:26] LABS: Potassium 3.3 mmol/L (3.5-5.1)
[2021-11-20 07:32] LABS: BUN/Creatinine Ratio 26.1; Calcium 7.5 mg/dL (8.5-10.1); Magnesium 1.9 mg/dL (1.6-2.6)
[2021-11-20] MEDS: MULTIPLE VITAMIN TAB PO SCH (08:23)
[2021-11-20] MEDS: PANTOPRAZOLE 40 MG/10 ML VIAL INJ IV SCH ×2 (08:24→21:06)
[2021-11-20 09:00] VITALS: BP 134/69
[2021-11-20] MEDS ORDERED: POTASSIUM CHLORIDE 40 MEQ, LIDOCAINE 1% (LOCAL ANESTH.) 4 ML in SODIUM CHL 0.9% 250 ML IV ONE (10:15)
[2021-11-20] MEDS: D5W/SOD CHLO 0.9% 1,000 ML IV SCH ×2 (10:44→23:50)
[2021-11-20] MEDS: MAGNESIUM SULFATE 1GM/100ML 100 ML IV SCH ×2 (11:27→14:41)
[2021-11-20] MEDS ORDERED: MORPHINE SULFATE INJ 2 MG/ml SYRG IV ONE (11:30)
[2021-11-20 13:00] VITALS: BP 157/91
[2021-11-20] MEDS: VANCOMYCIN 1GM/250ML 250 ML IV SCH (14:39)
[2021-11-20 14:47] LABS: Hemoglobin 7.2 g/dL (12.2-16.2)
[2021-11-20 14:50] LABS: Hematocrit 22.1 % (36.0-46.0)
[2021-11-20 16:57] VITALS: BP 125/79
[2021-11-20] MEDS: ATORVASTATIN 20 MG TAB PO SCH (21:06)
[2021-11-20] MEDS: AZITHROMYCIN 500MG/ 250ML 250 ML IV SCH (21:06)
[2021-11-20] MEDS: hydrALAZINE HCL 20 MG/ML VL IV PRN (21:08)
[2021-11-20 22:00] VITALS: BP 178/86
[2021-11-21] MEDS: ACCU-CHEK COMFORT CURVE STRIP VI SCH ×6 (03:53→23:59)
[2021-11-21] MEDS: InsuLIN REG 1unit/0.01ml Soln (100units/ml) SC SCH ×6 (03:53→23:59)
[2021-11-21] MEDS: PIPERACILLIN-TAZOB 3.375GM 100 ML IV SCH ×4 (03:54→22:10)
[2021-11-21 05:00] VITALS: BP 118/62
[2021-11-21] MEDS ORDERED: POTASSIUM CHL 20MEQ/100ML 100 ML IV ONE (05:22)
[2021-11-21 09:00] VITALS: BP 131/72
[2021-11-21] MEDS: MULTIPLE VITAMIN TAB PO SCH (10:00)
[2021-11-21] MEDS: PANTOPRAZOLE 40 MG/10 ML VIAL INJ IV SCH ×2 (10:00→22:10)
[2021-11-21] MEDS: D5W/SOD CHL 0.45% 1,000 ML IV SCH (11:00)
[2021-11-21 11:17] LABS: Basophils # (auto) 0.1 10 ^3/uL (0-0.2); Eosinophils # (auto) 0.1 10 ^3/uL (0-0.8); Eosinophils % (auto) 0.7 % (0.0-7.0); Monocytes # (auto) 0.7 10 ^3/uL (0-1.3); White Blood Cell 10.8 10^3/uL (4.4-10.8)
[2021-11-21 11:18] LABS: Basophils % (auto) 0.8 % (0.0-2.0); Hematocrit 25.1 % (36.0-46.0); Hemoglobin 8.1 g/dL (12.2-16.2); Lymphocytes # (auto) 0.8 10 ^3/uL (0.4-5.4); Lymphocytes % (auto) 7.4 % (10.0-50.0); Mean Corpuscular Hemoglobin 26.8 pg (28.0-32.0); Mean Corpuscular Hgb Conc. 32.2 g/dL (32.0-36.0); Mean Corpuscular Volume 83.3 fL (80.0-100.0); Monocytes % (auto) 6.8 % (0.0-12.0); Neutrophils # (auto) 9.1 10 ^3/uL (1.6-8.6); Neutrophils % (auto) 84.3 % (37.0-80.0); Nucleated Red Blood Cells % 0.2 %; Red Blood Cells 3.01 10^6/uL (4.0-5.20); Red Cell Distribution Width 22.8 % (11.8-14.3)
[2021-11-21 12:17] LABS: Albumin 1.3 g/dL (3.4-5.0); Calcium 7.4 mg/dL (8.5-10.1); Potassium 3.7 mmol/L (3.5-5.1)
[2021-11-21 12:23] LABS: BUN/Creatinine Ratio 18.1; Bilirubin, Total 0.5 mg/dL (0.2-1.0); Total Protein 5.8 g/dL (6.4-8.2)
[2021-11-21 13:00] VITALS: BP 121/65
[2021-11-21] MEDS: VANCOMYCIN 1GM/250ML 250 ML IV SCH (14:50)
[2021-11-21 17:00] VITALS: BP 113/45
[2021-11-21 22:00] VITALS: BP 133/63
[2021-11-21] MEDS: ATORVASTATIN 20 MG TAB GT SCH (22:00)
[2021-11-21] MEDS: AZITHROMYCIN 500MG/ 250ML 250 ML IV SCH (22:11)
[2021-11-22] MEDS: InsuLIN REG 1unit/0.01ml Soln (100units/ml) SC SCH ×5 (04:00→20:00)
[2021-11-22] MEDS: PIPERACILLIN-TAZOB 3.375GM 100 ML IV SCH ×4 (04:10→22:31)
[2021-11-22] MEDS: ACCU-CHEK COMFORT CURVE STRIP VI SCH ×5 (04:21→20:00)
[2021-11-22 05:00] VITALS: BP 138/74
[2021-11-22 06:36] LABS: Anion Gap 8 (5-15); BUN/Creatinine Ratio 15.4; Blood Urea Nitrogen 10 mg/dL (7-18); Calcium 7.5 mg/dL (8.5-10.1); Carbon Dioxide 21 mmol/L (21-32); Chloride 111 mmol/L (98-107); GFR African American 118 mL/min; GFR Non-African American 97 mL/min; Glucose 101 mg/dL (74-106); Potassium 3.6 mmol/L (3.5-5.1); Sodium 140 mmol/L (136-145)
[2021-11-22] MEDS: MULTIPLE VITAMIN TAB PO SCH (09:53)
[2021-11-22] MEDS: PANTOPRAZOLE 40 MG/10 ML VIAL INJ IV SCH ×2 (09:53→22:31)
[2021-11-22 10:00] LABS: Basophils # (auto) 0.1 10 ^3/uL (0-0.2); Basophils % (auto) 0.8 % (0.0-2.0); Eosinophils # (auto) 0.1 10 ^3/uL (0-0.8); Monocytes # (auto) 0.7 10 ^3/uL (0-1.3); Nucleated Red Blood Cells % 0.1 %
[2021-11-22 10:01] LABS: Eosinophils % (auto) 0.9 % (0.0-7.0); Hematocrit 24.7 % (36.0-46.0); Hemoglobin 8.1 g/dL (12.2-16.2); Lymphocytes # (auto) 0.9 10 ^3/uL (0.4-5.4); Lymphocytes % (auto) 8.6 % (10.0-50.0); Mean Corpuscular Volume 81.8 fL (80.0-100.0); Monocytes % (auto) 6.5 % (0.0-12.0); Neutrophils # (auto) 8.8 10 ^3/uL (1.6-8.6); Neutrophils % (auto) 83.2 % (37.0-80.0); Red Blood Cells 3.02 10^6/uL (4.0-5.20); White Blood Cell 10.6 10^3/uL (4.4-10.8)
[2021-11-22 10:02] LABS: Red Cell Distribution Width 22.9 % (11.8-14.3)
[2021-11-22] MEDS: HYDROmorphone HCL 2 MG/ML VL/or syr IV PRN (11:05)
[2021-11-22] MEDS: hydrALAZINE HCL 20 MG/ML VL IV PRN (11:11)
[2021-11-22 13:00] VITALS: BP 131/80
[2021-11-22] MEDS: D5W/SOD CHL 0.45% 1,000 ML IV SCH ×2 (15:53)
[2021-11-22] MEDS: VANCOMYCIN 1GM/250ML 250 ML IV SCH (15:59)
[2021-11-22 17:00] VITALS: BP 120/65
[2021-11-22 22:00] VITALS: BP 126/45
[2021-11-22] MEDS: ATORVASTATIN 20 MG TAB GT SCH (22:00)
[2021-11-23] MEDS: ACCU-CHEK COMFORT CURVE STRIP VI SCH ×5 (00:29→17:15)
[2021-11-23] MEDS: D5W/SOD CHL 0.45% 1,000 ML IV SCH ×2 (00:42→17:15)
[2021-11-23] MEDS: HYDROmorphone HCL 2 MG/ML VL/or syr IV PRN ×2 (00:43→11:22)
[2021-11-23] MEDS: InsuLIN REG 1unit/0.01ml Soln (100units/ml) SC SCH ×5 (04:00→17:23)
[2021-11-23 05:00] VITALS: BP 153/79
[2021-11-23] MEDS: PIPERACILLIN-TAZOB 3.375GM 100 ML IV SCH ×3 (05:04→15:51)
[2021-11-23 08:00] VITALS: BP 147/78
[2021-11-23] MEDS: PANTOPRAZOLE 40 MG/10 ML VIAL INJ IV SCH (08:40)
[2021-11-23] MEDS: MULTIPLE VITAMIN TAB PO SCH (08:40)
[2021-11-23] MEDS ORDERED: GASTROGRAFIN 30 ML SOL ONE (11:34)
[2021-11-23 12:00] VITALS: BP 165/95
[2021-11-23] MEDS: hydrALAZINE HCL 20 MG/ML VL IV PRN (13:21)
[2021-11-23 16:00] VITALS: BP 142/79
== END 2021-11-23 18:43 | disposition hospice, home (50) | DRG 871 ==
LOC: ER 05:55 → EDBD 05:55 → OVERFLOW 23:49 → TELE-EAST 11-19 15:57 → EAST 11-22 03:43
PROVIDERS: ADMIT Nurse Practitioner Family; ATTEND Internal Medicine
PROC: 30233N1 Transfusion of Nonautologous Red Blood Cells into Peripheral Vein, Percutaneous Approach (ICD-10-PCS; principal; 2021-11-17)
PROC: 05HF33Z Insertion of Infusion Device into Left Cephalic Vein, Percutaneous Approach (ICD-10-PCS; 2021-11-17)
PROC: B54NZZA Ultrasonography of Left Upper Extremity Veins, Guidance (ICD-10-PCS; 2021-11-17)
DX: A41.9 Sepsis, unspecified organism (principal); I63.9 Cerebral infarction, unspecified; K25.4 Chronic or unspecified gastric ulcer with hemorrhage; J69.0 Pneumonitis due to inhalation of food and vomit; N18.6 End stage renal disease; K94.23 Gastrostomy malfunction; G93.40 Encephalopathy, unspecified; E87.0 Hyperosmolality and hypernatremia; E87.1 Hypo-osmolality and hyponatremia; I12.0 Hypertensive chronic kidney disease with stage 5 chronic kidney disease or end stage renal disease; R65.20 Severe sepsis without septic shock; E88.09 Other disorders of plasma-protein metabolism, not elsewhere classified; Z66 Do not resuscitate; Z20.822 Contact with and (suspected) exposure to COVID-19; L89.159 Pressure ulcer of sacral region, unspecified stage; Y83.8 Other surgical procedures as the cause of abnormal reaction of the patient, or of later complication, without mention of misadventure at the time of the procedure; D64.9 Anemia, unspecified; E87.5 Hyperkalemia; Z74.01 Bed confinement status; Z51.5 Encounter for palliative care; Z86.73 Personal history of transient ischemic attack (TIA), and cerebral infarction without residual deficits; Y92.89 Other specified places as the place of occurrence of the external cause
CPT/HCPCS: 36415; 70450; 70496; 70498; 71045; 74018; 80048; 80053; 80061; 80202; 81001; 82140; 82565; 82962; 83605; 83615; 83735; 83880; 84484; 85014; 85018; 85025; 85384; 85610; 85730; 86850; 86900; 86901; 86920; 87081; 93005; 96361; 96365; 96375; 99291; C9113; G0378; J0696; J1815; J2001; J2405; J2543; J3480